=== PATIENT | male | born 1965 | race African-American/Black ===

== ENCOUNTER 2022-05-11 18:28 | Inpatient (IN) | payer OTHER ==
[2022-05-11 19:46] VITALS: BMI 19.1
[2022-05-11] MEDS ORDERED: BISMUTH SUBSALICYLATE 524 MG/30 ML PO PRN (20:40)
[2022-05-11] MEDS ORDERED: NICOTINE 10 MG CARTRIDGE (INHALER) IH PRN (20:40)
[2022-05-11] MEDS ORDERED: LOPERAMIDE HCL 2 MG CAPSULE PO PRN (20:40)
[2022-05-11] MEDS ORDERED: MAGNESIUM HYDROX 2400MG/30ML ORAL SUSPENSION 30 ML CUP PO PRN (20:40)
[2022-05-11] MEDS ORDERED: IBUPROFEN 600 MG TABLET (FP) PO PRN (20:40)
[2022-05-11] MEDS ORDERED: DICYCLOMINE HCL 10 MG CAPSULE PO PRN (20:40)
[2022-05-11] MEDS ORDERED: MAGNESIUM CITRATE 300 ML BOTTLE PO PRN (20:40)
[2022-05-11] MEDS ORDERED: IBUPROFEN 400 MG TABLET (FP) PO PRN (20:40)
[2022-05-11] MEDS ORDERED: ONDANSETRON *ODT* 4 MG TABLET SL PRN (20:40)
[2022-05-11] MEDS ORDERED: MAG HYDROX/AL HYDROX/SIMETH 30 ML UNIT-DOSE CUP PO PRN (20:40)
[2022-05-11] MEDS ORDERED: BENZOCAINE/MENTHOL (CHLORASEPTIC ) LOZENGE MM PRN (20:40)
[2022-05-11] MEDS ORDERED: ACETAMINOPHEN 325 MG TABLET (FP) PO PRN (20:40)
[2022-05-11] MEDS: THIAMINE HCL 100 MG TABLET (FP) PO SCH (23:11)
[2022-05-11] MEDS: MELATONIN 5 MG TABLETS PO SCH (23:11)
[2022-05-11] MEDS: METHOCARBAMOL 500 MG TABLET PO PRN (23:11)
[2022-05-12] MEDS: METHOCARBAMOL 500 MG TABLET PO PRN (06:59)
[2022-05-12] MEDS ORDERED: chlordiazePOXIDE HCL 25 MG CAPSULE PO PRN (09:32)
[2022-05-12] MEDS: PRENATAL VITAMINS W/ FOLIC ACID TABLET (FP) PO SCH (10:49)
[2022-05-12] MEDS: NICOTINE 14 MG/24 HOURS TOPICAL PATCH TD SCH (10:49)
[2022-05-12] MEDS: chlordiazePOXIDE HCL 25 MG CAPSULE PO SCH ×3 (10:51→22:47)
[2022-05-12 10:52] LABS: HEMATOCRIT 38.6 % (35.4-49); HEMOGLOBIN 13.3 GM/dL (11.7-16.9); MCH 31.6 pg (25.7-33.7); MCHC 34.4 g/dl (32.0-35.9); MEAN CELL VOLUME 91.8 fl (80-96); MEAN PLT VOLUME 8.6 fl (7.5-11.1); PLATELET COUNT 151 10^3/uL (134-434); RDW 12.5 % (11.9-15.9); WHITE BLOOD COUNT 3.3 K/mm3 (4.0-10.0)
[2022-05-12 11:35] LABS: ALBUMIN 3.9 g/dl (3.4-5.0); BLOOD UREA NITROGEN 12.2 mg/dL (7-18); CALCIUM 9.4 mg/dL (8.5-10.1)
[2022-05-12 11:38] LABS: CREATININE 0.7 mg/dL (0.55-1.3)
[2022-05-12 11:40] LABS: TOT PROT 7.3 g/dl (6.4-8.2)
[2022-05-12] MEDS: ACETAMINOPHEN 325 MG TABLET (FP) PO PRN (17:57)
[2022-05-12] MEDS: MELATONIN 5 MG TABLETS PO SCH (22:47)
[2022-05-12] MEDS: THIAMINE HCL 100 MG TABLET (FP) PO SCH (22:47)
[2022-05-13] MEDS: chlordiazePOXIDE HCL 25 MG CAPSULE PO SCH ×4 (05:43→22:46)
[2022-05-13] MEDS: NICOTINE 14 MG/24 HOURS TOPICAL PATCH TD SCH (10:48)
[2022-05-13] MEDS: PRENATAL VITAMINS W/ FOLIC ACID TABLET (FP) PO SCH (10:49)
[2022-05-13] MEDS: ACETAMINOPHEN 325 MG TABLET (FP) PO PRN (18:23)
[2022-05-13] MEDS: MELATONIN 5 MG TABLETS PO SCH (22:46)
[2022-05-13] MEDS: THIAMINE HCL 100 MG TABLET (FP) PO SCH (22:46)
[2022-05-14] MEDS: chlordiazePOXIDE HCL 25 MG CAPSULE PO SCH ×4 (05:30→22:13)
[2022-05-14] MEDS: NICOTINE 14 MG/24 HOURS TOPICAL PATCH TD SCH (10:33)
[2022-05-14] MEDS: PRENATAL VITAMINS W/ FOLIC ACID TABLET (FP) PO SCH (10:33)
[2022-05-14 18:22] VITALS: RESP 18
[2022-05-14] MEDS: MELATONIN 5 MG TABLETS PO SCH (22:12)
[2022-05-14] MEDS: THIAMINE HCL 100 MG TABLET (FP) PO SCH (22:12)
[2022-05-15] MEDS ORDERED: chlordiazePOXIDE HCL 10 MG CAPSULE PO PRN
[2022-05-15] MEDS: chlordiazePOXIDE HCL 10 MG CAPSULE PO SCH ×4 (06:35→22:24)
[2022-05-15] MEDS: ACETAMINOPHEN 325 MG TABLET (FP) PO PRN ×2 (06:36→17:36)
[2022-05-15] MEDS: PRENATAL VITAMINS W/ FOLIC ACID TABLET (FP) PO SCH (10:42)
[2022-05-15] MEDS: NICOTINE 14 MG/24 HOURS TOPICAL PATCH TD SCH (10:43)
[2022-05-15] MEDS: THIAMINE HCL 100 MG TABLET (FP) PO SCH (22:24)
[2022-05-15] MEDS: MELATONIN 5 MG TABLETS PO SCH (22:24)
[2022-05-16] MEDS: chlordiazePOXIDE HCL 10 MG CAPSULE PO SCH ×2 (06:02→17:44)
[2022-05-16] MEDS: NICOTINE 14 MG/24 HOURS TOPICAL PATCH TD SCH (10:08)
[2022-05-16] MEDS: PRENATAL VITAMINS W/ FOLIC ACID TABLET (FP) PO SCH (10:08)
[2022-05-16 21:36] VITALS: BP 164/95; PULSE 55; TEMP 97.8
[2022-05-17] MEDS ORDERED: chlordiazePOXIDE HCL 10 MG CAPSULE PO ONE (05:00)
== END 2022-05-16 20:30 | disposition left against medical advice (07) | DRG 894 ==
LOC: YASAS 18:28 → Y3N 21:56 → Y6N 05-16 19:29
PROVIDERS: ADMIT Allergy & Immunology; ATTEND Surgery
PROC: HZ2ZZZZ Detoxification Services for Substance Abuse Treatment (ICD-10-PCS; principal; 2022-05-13)
DX: F10.230 Alcohol dependence with withdrawal, uncomplicated (principal); F17.210 Nicotine dependence, cigarettes, uncomplicated; Z87.828 Personal history of other (healed) physical injury and trauma
CPT/HCPCS: 36415; 80053; 85027; 86780; 93005; 93010; C9803-CS; U0003; U0005